=== PATIENT | female | born 1960 | race Caucasian/White ===

== ENCOUNTER 2018-07-03 12:07 | Inpatient (IN) | payer MEDICARE, MEDICAID ==
[~2018-07-03] VITALS: Ht 165.1 cm; Wt 76.8 kg
[2018-07-03] MEDS ORDERED: PLEASE ENTER HEIGHT AND WEIGHT MC SCH (13:00)
[2018-07-03] MEDS ORDERED: VANCOMYCIN PER PHARMACY MC ONE (13:00)
[2018-07-03] MEDS ORDERED: ACETAMINOPHEN 500 MG TABLET PO ONE (13:00)
[2018-07-03] MEDS ORDERED: SODIUM CHLORIDE 0.9% 1,000ML IVBOLUS ONE (13:00)
[2018-07-03 13:13] LABS: MEAN CORPUSCULAR HEMOGLOBIN 31.2 pg (27.0-34.8); MEAN CORPUSCULAR HGB CONC 34.4 g/dL (32.4-35.8); MEAN CORPUSCULAR VOLUME 90.6 fL (80-100); MEAN PLATELET VOLUME 7.5 fL (7.4-10.4); PLATELET COUNT 250 x10^3/uL (130-400); RED CELL DISTRIBUTION WIDTH 12.9 % (9.6-15.2)
[2018-07-03 13:23] LABS: ALANINE AMINOTRANSFERASE 40 U/L (12-78); ALBUMIN 2.4 g/dL (3.4-5.0); ANION GAP 9 mmol/L (5-15); CALCIUM 8.5 mg/dL (8.5-10.1); CHLORIDE 99 mmol/L (98-107); CREATININE 0.88 mg/dL (0.55-1.02)
[2018-07-03 13:25] LABS: ALKALINE PHOSPHATASE 92 U/L (45-117); BILIRUBIN,TOTAL 1.2 mg/dL (0.2-1.0); TOTAL PROTEIN 7.1 g/dL (6.4-8.2)
[2018-07-03] MEDS ORDERED: VANCOMYCIN 1,200 MG in SODIUM CHLORIDE 0.9% 250 ML IV ONE (13:30)
[2018-07-03 13:46] LABS: MD YES
[2018-07-03 13:48] LABS: BAND#(MANUAL) 1.71 x10^3/uL; BANDS%(MANUAL) 10 % (0-7); LYMPH#(MANUAL) 0.51 x10^3/uL (1-3.4); LYMPHS% (MANUAL) 3 % (22-44); MONOS#(MANUAL) 1.03 x10^3/uL (0.3-2.7); MONOS% (MANUAL) 6 % (2-9); SEG#(MANUAL) 13.85 x10^3/uL (1.8-6.8); SEGS% (MANUAL) 81 % (42-75)
[2018-07-03 13:49] LABS: <RBC MORPHOLOGY> NORMAL
[2018-07-03 13:50] LABS: <PLATELET ESTIMATE> ADEQUATE; <PLT MORPHOLOGY> NORMAL PLT MORPH; TOXIC GRAN 1+
[2018-07-03] MEDS ORDERED: DOXY100C15 PO (13:54)
[2018-07-03] MEDS ORDERED: AMPICILLIN/SULBACTAM 3 GM in SODIUM CHLORIDE 0.9% 100 ML IV ONE (14:30)
[2018-07-03 15:09] VITALS: BP 109/66
[2018-07-03] MEDS ORDERED: ONDANSETRON 2MG/ML, 2ML IVPush PRN (15:30)
[2018-07-03] MEDS ORDERED: POTASSIUM CHLORIDE 20 MEQ TAB.ER.PRT PO ONE (15:30)
[2018-07-03] MEDS ORDERED: VANCOMYCIN PER PHARMACY MC SCH (15:30)
[2018-07-03 15:52] LABS: HEMOGLOBIN A1C 5.8 % (4.2-6.3)
[2018-07-03 16:07] LABS: FREE T4 (FREE THYROXINE) 1.59 ng/dL (0.76-1.46); THYROID STIMULATING HORMONE 0.911 mIU/L (0.358-3.740)
[2018-07-03] MEDS: SODIUM CHLORIDE 0.9% 1,000 ML IV SCH (16:19)
[2018-07-03] MEDS: ENOXAPARIN 40 MG/0.4 ML SQ SCH (16:21)
[2018-07-03] MEDS: NICOTINE 14MG/24 HR PATCH.TD24 TD SCH (16:22)
[2018-07-03] MEDS: AMPICILLIN/SULBACTAM 3 GM in SODIUM CHLORIDE 0.9% 100 ML IV SCH ×2 (16:54→22:15)
[2018-07-03 17:39] LABS: MICROSCOPIC AUTO
[2018-07-03 17:52] LABS: CULTURE INDICATED? NO
[2018-07-03 19:25] VITALS: BP 97/55
[2018-07-03 20:00] LABS: AMPHETAMINE SCREEN, URINE Negative (Negative); BARBITURATE SCREEN, URINE Negative (Negative); BENZODIAZEPINE SCREEN, URINE Negative (Negative); CANNABINOID SCREEN, URINE Negative (Negative); COCAINE SCREEN, URINE Negative (Negative); METHADONE SCREEN, URINE Negative (Negative); OPIATE SCREEN, URINE Negative (Negative)
[2018-07-03] MEDS: ACETAMINOPHEN 325 MG TABLET PO PRN (21:28)
[2018-07-04 00:36] VITALS: BP 97/59
[2018-07-04] MEDS: SODIUM CHLORIDE 0.9% 1,000 ML IV SCH ×2 (00:50→13:00)
[2018-07-04] MEDS: VANCOMYCIN 1,300 MG in SODIUM CHLORIDE 0.9% 250 ML IV SCH ×2 (03:02→21:49)
[2018-07-04] MEDS: AMPICILLIN/SULBACTAM 3 GM in SODIUM CHLORIDE 0.9% 100 ML IV SCH ×4 (04:03→17:28)
[2018-07-04] MEDS: ACETAMINOPHEN 325 MG TABLET PO PRN ×2 (04:08→13:36)
[2018-07-04 06:09] LABS: BASOPHILS # (AUTO) 0.03 x10^3/uL (0-0.1); BASOPHILS % (AUTO) 0 % (0-1); EOSINOPHILS # (AUTO) 0.03 x10^3/uL (0-0.4); EOSINOPHILS % (AUTO) 0 % (1-7); LYMPHOCYTES # (AUTO) 0.96 x10^3/uL (1-3.4); LYMPHOCYTES % (AUTO) 7 % (22-44); MD NO; MEAN CORPUSCULAR HEMOGLOBIN 31.4 pg (27.0-34.8); MEAN CORPUSCULAR HGB CONC 34.5 g/dL (32.4-35.8); MEAN PLATELET VOLUME 7.8 fL (7.4-10.4); MONOCYTES % (AUTO) 7 % (2-9); NEUTROPHILS # (AUTO) 12.13 x10^3/uL (1.8-6.8); NEUTROPHILS % (AUTO) 86 % (42-75); PLATELET COUNT 239 x10^3/uL (130-400); RED BLOOD COUNT 3.64 x10^6/uL (3.82-5.3); RED CELL DISTRIBUTION WIDTH 13.3 % (9.6-15.2)
[2018-07-04 06:22] LABS: ALBUMIN 1.9 g/dL (3.4-5.0); ANION GAP 9 mmol/L (5-15); CALCIUM 7.9 mg/dL (8.5-10.1); CHLORIDE 107 mmol/L (98-107)
[2018-07-04 06:25] LABS: ALANINE AMINOTRANSFERASE 40 U/L (12-78); ALKALINE PHOSPHATASE 87 U/L (45-117); BILIRUBIN,TOTAL 0.9 mg/dL (0.2-1.0); CREATININE 0.69 mg/dL (0.55-1.02); TOTAL PROTEIN 5.8 g/dL (6.4-8.2)
[2018-07-04 08:02] VITALS: BP 106/67
[2018-07-04 12:59] VITALS: BP 102/53
[2018-07-04] MEDS ORDERED: POTASSIUM CHLORIDE 20 MEQ TAB.ER.PRT PO ONE (15:30)
[2018-07-04] MEDS ORDERED: KETOROLAC 30 MG/1 ML IVPush PRN (15:30)
[2018-07-04] MEDS ORDERED: POTASSIUM PHOSPHATE 44 MEQ in SODIUM CHLORIDE 0.9% 500 ML IV ONE (15:30)
[2018-07-04] MEDS: ENOXAPARIN 40 MG/0.4 ML SQ SCH (16:01)
[2018-07-04] MEDS: NICOTINE 14MG/24 HR PATCH.TD24 TD SCH (17:29)
[2018-07-04 19:32] VITALS: BP 115/69
[2018-07-05] MEDS: AMPICILLIN/SULBACTAM 3 GM in SODIUM CHLORIDE 0.9% 100 ML IV SCH ×4 (01:02→20:04)
[2018-07-05] MEDS: ACETAMINOPHEN 325 MG TABLET PO PRN ×4 (01:11→20:04)
[2018-07-05 01:45] VITALS: BP 113/70
[2018-07-05 06:19] LABS: BASOPHILS # (AUTO) 0.11 x10^3/uL (0-0.1); BASOPHILS % (AUTO) 1 % (0-1); EOSINOPHILS % (AUTO) 1 % (1-7); LYMPHOCYTES # (AUTO) 1.13 x10^3/uL (1-3.4); LYMPHOCYTES % (AUTO) 11 % (22-44); MD NO; MEAN CORPUSCULAR HEMOGLOBIN 31.2 pg (27.0-34.8); MEAN CORPUSCULAR HGB CONC 33.7 g/dL (32.4-35.8); MEAN CORPUSCULAR VOLUME 92.4 fL (80-100); MEAN PLATELET VOLUME 8.1 fL (7.4-10.4); MONOCYTES # (AUTO) 0.76 x10^3/uL (0.2-0.8); MONOCYTES % (AUTO) 7 % (2-9); NEUTROPHILS # (AUTO) 8.66 x10^3/uL (1.8-6.8); NEUTROPHILS % (AUTO) 81 % (42-75); PLATELET COUNT 280 x10^3/uL (130-400); RED BLOOD COUNT 3.46 x10^6/uL (3.82-5.3); RED CELL DISTRIBUTION WIDTH 13.6 % (9.6-15.2)
[2018-07-05 06:23] LABS: ALBUMIN 1.8 g/dL (3.4-5.0); ANION GAP 7 mmol/L (5-15); CALCIUM 8.3 mg/dL (8.5-10.1); CHLORIDE 112 mmol/L (98-107)
[2018-07-05 06:28] LABS: ALANINE AMINOTRANSFERASE 40 U/L (12-78); ALKALINE PHOSPHATASE 98 U/L (45-117); BILIRUBIN,TOTAL 0.3 mg/dL (0.2-1.0); CREATININE 0.78 mg/dL (0.55-1.02); TOTAL PROTEIN 5.6 g/dL (6.4-8.2)
[2018-07-05 08:16] VITALS: BP 117/70
[2018-07-05 12:36] VITALS: BP 109/62
[2018-07-05] MEDS: VANCOMYCIN 1,300 MG in SODIUM CHLORIDE 0.9% 250 ML IV SCH (15:46)
[2018-07-05] MEDS: ENOXAPARIN 40 MG/0.4 ML SQ SCH (15:47)
[2018-07-05] MEDS: NICOTINE 14MG/24 HR PATCH.TD24 TD SCH (15:47)
[2018-07-05 19:00] VITALS: BP 115/67
[2018-07-06] MEDS: AMPICILLIN/SULBACTAM 3 GM in SODIUM CHLORIDE 0.9% 100 ML IV SCH ×4 (02:04→21:45)
[2018-07-06 03:49] VITALS: BP 116/70
[2018-07-06] MEDS: ACETAMINOPHEN 325 MG TABLET PO PRN ×2 (04:09→08:27)
[2018-07-06 07:41] VITALS: BP 103/62
[2018-07-06] MEDS: ENOXAPARIN 40 MG/0.4 ML SQ SCH (08:27)
[2018-07-06] MEDS: NICOTINE 14MG/24 HR PATCH.TD24 TD SCH (08:27)
[2018-07-06] MEDS: VANCOMYCIN 1,300 MG in SODIUM CHLORIDE 0.9% 250 ML IV SCH (10:06)
[2018-07-06 12:31] VITALS: BP 103/67
[2018-07-06] MEDS ORDERED: SENNA/DOCUSATE TABLET PO PRN (13:30)
[2018-07-06] MEDS ORDERED: LACT1CAP24 PO (14:08)
[2018-07-06] MEDS ORDERED: SULF1TAB24 PO (14:08)
[2018-07-06] MEDS ORDERED: NICO-486 TD (14:08)
[2018-07-06] MEDS ORDERED: ACET325T14 PO (14:08)
[2018-07-06] MEDS ORDERED: AMOX1TAB64 PO (14:08)
[2018-07-06 19:00] VITALS: BP 129/72
[2018-07-06] MEDS: SODIUM CHLORIDE 0.9% 1,000 ML IV SCH (21:45)
[2018-07-07] MEDS: AMPICILLIN/SULBACTAM 3 GM in SODIUM CHLORIDE 0.9% 100 ML IV SCH ×4 (02:48→21:15)
[2018-07-07] MEDS: VANCOMYCIN 1,300 MG in SODIUM CHLORIDE 0.9% 250 ML IV SCH ×2 (03:25→22:09)
[2018-07-07 03:30] VITALS: BP 123/56
[2018-07-07] MEDS: SODIUM CHLORIDE 0.9% 1,000 ML IV SCH (05:23)
[2018-07-07 07:29] VITALS: BP 116/65
[2018-07-07] MEDS: NICOTINE 14MG/24 HR PATCH.TD24 TD SCH (09:00)
[2018-07-07] MEDS ORDERED: OMNIPAQUE 350 MG/ML, 150 ML BOTTLE ONE (12:15)
[2018-07-07 13:11] VITALS: BP 123/64
[2018-07-07] MEDS ORDERED: HEPARIN 5,000 UNITS/ML, 1ML IV ONE (14:30)
[2018-07-07 16:10] LABS: BASOPHILS # (AUTO) 0.08 x10^3/uL (0-0.1); BASOPHILS % (AUTO) 1 % (0-1); EOSINOPHILS # (AUTO) 0.12 x10^3/uL (0-0.4); EOSINOPHILS % (AUTO) 1 % (1-7); LYMPHOCYTES # (AUTO) 1.11 x10^3/uL (1-3.4); LYMPHOCYTES % (AUTO) 12 % (22-44); MD NO; MEAN CORPUSCULAR HEMOGLOBIN 30.8 pg (27.0-34.8); MEAN CORPUSCULAR HGB CONC 33.6 g/dL (32.4-35.8); MEAN CORPUSCULAR VOLUME 91.8 fL (80-100); MEAN PLATELET VOLUME 7.8 fL (7.4-10.4); MONOCYTES # (AUTO) 0.46 x10^3/uL (0.2-0.8); MONOCYTES % (AUTO) 5 % (2-9); NEUTROPHILS # (AUTO) 7.62 x10^3/uL (1.8-6.8); NEUTROPHILS % (AUTO) 81 % (42-75); PLATELET COUNT 374 x10^3/uL (130-400); RED BLOOD COUNT 3.85 x10^6/uL (3.82-5.3); RED CELL DISTRIBUTION WIDTH 13.3 % (9.6-15.2)
[2018-07-07] MEDS: HEPARIN 25,000 UNITS/500ML PMX 500 ML IV PRN (16:48)
[2018-07-07 20:27] VITALS: BP 146/64
[2018-07-08] MEDS: HEPARIN 5,000 UNITS/ML, 1ML IV PRN ×4 (00:30→18:40)
[2018-07-08 00:38] VITALS: BP 108/65
[2018-07-08] MEDS: AMPICILLIN/SULBACTAM 3 GM in SODIUM CHLORIDE 0.9% 100 ML IV SCH ×3 (04:01→15:34)
[2018-07-08 07:46] VITALS: BP 106/61
[2018-07-08] MEDS: NICOTINE 14MG/24 HR PATCH.TD24 TD SCH ×2 (09:00→18:18)
[2018-07-08 13:32] VITALS: BP 107/68
[2018-07-08] MEDS: HEPARIN 25,000 UNITS/500ML PMX 500 ML IV PRN (16:23)
[2018-07-08] MEDS: VANCOMYCIN 1,300 MG in SODIUM CHLORIDE 0.9% 250 ML IV SCH (16:53)
[2018-07-08 18:58] VITALS: BP 117/71
[2018-07-08] MEDS: SULFAMETH./TRIMETHOPRIM DS 800MG/160MG TABLET PO SCH (19:21)
[2018-07-08] MEDS: AMOXICILLIN/CLAV 875-125MG TABLET PO SCH (19:21)
[2018-07-09] MEDS: HEPARIN 5,000 UNITS/ML, 1ML IV PRN (01:04)
[2018-07-09 01:07] VITALS: BP 108/65
[2018-07-09 06:45] VITALS: BP 113/62
[2018-07-09] MEDS: SULFAMETH./TRIMETHOPRIM DS 800MG/160MG TABLET PO SCH (08:47)
[2018-07-09] MEDS: AMOXICILLIN/CLAV 875-125MG TABLET PO SCH (08:47)
[2018-07-09] MEDS: HEPARIN 25,000 UNITS/500ML PMX 500 ML IV PRN (10:16)
[2018-07-09] MEDS ORDERED: TRAM50TA2 PO (10:48)
== END 2018-07-09 12:52 | disposition home or self-care (01) | DRG 871 ==
LOC: ED 13:41 → EDIP 13:42 → ED 14:05 → 3NE 14:59 → DCLOUNGE 07-06 16:19 → 3NE 07-06 17:04
PROVIDERS: ADMIT Internal Medicine; ATTEND Internal Medicine
DX: A41.9 Sepsis, unspecified organism (principal); E43 Unspecified severe protein-calorie malnutrition; L03.115 Cellulitis of right lower limb; E87.6 Hypokalemia; Z68.28 Body mass index [BMI] 28.0-28.9, adult; E83.39 Other disorders of phosphorus metabolism; F15.90 Other stimulant use, unspecified, uncomplicated; F17.200 Nicotine dependence, unspecified, uncomplicated; Z80.3 Family history of malignant neoplasm of breast
CPT/HCPCS: 36415; 71045; 75635; 80053; 80202; 80307; 81001; 83036; 83605; 83735; 84100; 84439; 84443; 85025; 85520; 87040; 93922; 99285; J0295; J1644; J1650; J1885; J2405; J3370; Q9967; J7030; J7040; J7050

== ENCOUNTER 2018-07-09 18:08 | Emergency (ER) | payer MEDICARE, MEDICAID ==
[~2018-07-09] VITALS: Ht 165.1 cm; Wt 69.0 kg
[~2018-07-09 18:08] MED LIST: ACET325T14 PO; AMOX1TAB64 PO; DOXY100C15 PO; LACT1CAP24 PO; NICO-486 TD; SULF1TAB24 PO; TRAM50TA2 PO
[2018-07-09 18:17] VITALS: BP 120/72
[2018-07-09 18:56] LABS: BASOPHILS # (AUTO) 0.04 x10^3/uL (0-0.1); BASOPHILS % (AUTO) 0 % (0-1); EOSINOPHILS % (AUTO) 1 % (1-7); LYMPHOCYTES # (AUTO) 1.28 x10^3/uL (1-3.4); LYMPHOCYTES % (AUTO) 11 % (22-44); MD NO; MEAN CORPUSCULAR HEMOGLOBIN 30.8 pg (27.0-34.8); MEAN CORPUSCULAR HGB CONC 33.5 g/dL (32.4-35.8); MEAN CORPUSCULAR VOLUME 91.9 fL (80-100); MEAN PLATELET VOLUME 7.2 fL (7.4-10.4); MONOCYTES # (AUTO) 0.62 x10^3/uL (0.2-0.8); MONOCYTES % (AUTO) 5 % (2-9); NEUTROPHILS # (AUTO) 9.38 x10^3/uL (1.8-6.8); NEUTROPHILS % (AUTO) 82 % (42-75); PLATELET COUNT 480 x10^3/uL (130-400); RED BLOOD COUNT 3.97 x10^6/uL (3.82-5.3); RED CELL DISTRIBUTION WIDTH 13.2 % (9.6-15.2)
[2018-07-09 19:02] LABS: ALANINE AMINOTRANSFERASE 56 U/L (12-78); ALBUMIN 2.7 g/dL (3.4-5.0); ANION GAP 12 mmol/L (5-15); CALCIUM 8.9 mg/dL (8.5-10.1); CHLORIDE 102 mmol/L (98-107); CREATININE 1.29 mg/dL (0.55-1.02)
[2018-07-09 19:04] LABS: ALKALINE PHOSPHATASE 98 U/L (45-117); BILIRUBIN,TOTAL 0.2 mg/dL (0.2-1.0); TOTAL PROTEIN 7.6 g/dL (6.4-8.2)
== END 2018-07-09 19:36 | disposition home or self-care (01) ==
LOC: ED 18:50
DX: L03.115 Cellulitis of right lower limb (principal); Z72.9 Problem related to lifestyle, unspecified; F17.200 Nicotine dependence, unspecified, uncomplicated
CPT/HCPCS: 36415; 80053; 85025; 99284

== ENCOUNTER 2018-07-10 03:08 | Emergency (ER) | payer MEDICAID, MEDICARE ==
[~2018-07-10] VITALS: Ht 165.1 cm; Wt 69.8 kg
[2018-07-10 03:13] VITALS: BP 143/73
[2018-07-10] MEDS ORDERED: HYDROcodone/APAP 5/325 TABLET ONE (03:37)
[2018-07-10] MEDS ORDERED: HYDROcodone/APAP 5/325 TABLET PO ONE (04:00)
== END 2018-07-10 04:15 | disposition home or self-care (01) ==
LOC: ED 03:49
DX: L03.115 Cellulitis of right lower limb (principal)
CPT/HCPCS: 99282

== ENCOUNTER 2018-07-11 21:02 | Emergency (ER) | payer MEDICAID ==
[~2018-07-11] VITALS: Ht 165.1 cm; Wt 67.4 kg
[2018-07-11 21:05] VITALS: BP 132/94
[2018-07-11] MEDS ORDERED: KETOROLAC 30 MG/1 ML ONE (21:27)
[2018-07-11] MEDS ORDERED: KETOROLAC 30 MG/1 ML IM ONE (21:30)
== END 2018-07-11 21:34 | disposition home or self-care (01) ==
LOC: ED 21:25
DX: L03.115 Cellulitis of right lower limb (principal)
CPT/HCPCS: 96372; 99283; J1885

== ENCOUNTER 2018-07-19 14:17 | Emergency (ER) | payer MEDICAID, OTHER ==
[~2018-07-19] VITALS: Ht 165.1 cm; Wt 67.5 kg
[2018-07-19 15:48] LABS: BASOPHILS # (AUTO) 0.03 x10^3/uL (0-0.1); BASOPHILS % (AUTO) 1 % (0-1); EOSINOPHILS # (AUTO) 0.12 x10^3/uL (0-0.4); EOSINOPHILS % (AUTO) 3 % (1-7); LYMPHOCYTES # (AUTO) 1.01 x10^3/uL (1-3.4); LYMPHOCYTES % (AUTO) 22 % (22-44); MD NO; MEAN CORPUSCULAR HEMOGLOBIN 31.4 pg (27.0-34.8); MEAN CORPUSCULAR HGB CONC 34.1 g/dL (32.4-35.8); MEAN PLATELET VOLUME 7.3 fL (7.4-10.4); MONOCYTES # (AUTO) 0.57 x10^3/uL (0.2-0.8); MONOCYTES % (AUTO) 13 % (2-9); NEUTROPHILS # (AUTO) 2.84 x10^3/uL (1.8-6.8); NEUTROPHILS % (AUTO) 62 % (42-75); PLATELET COUNT 417 x10^3/uL (130-400); RED BLOOD COUNT 4.24 x10^6/uL (3.82-5.3); RED CELL DISTRIBUTION WIDTH 14.1 % (9.6-15.2)
[2018-07-19 16:04] VITALS: BP 127/59
== END 2018-07-19 16:41 | disposition home or self-care (01) ==
LOC: ED 16:21
DX: R60.1 Generalized edema (principal)
CPT/HCPCS: 36415; 85025; 99283